=== PATIENT | female | born 1950 | race Caucasian/White ===

== ENCOUNTER → 2018-11-23 | Outpatient (CLI) | payer OTHER | LOC: M.RAD 11-09 15:29 | DX: Z12.31 Encounter for screening mammogram for malignant neoplasm of breast (principal); M81.0 Age-related osteoporosis without current pathological fracture ==

== ENCOUNTER 2019-03-08 17:54 | Emergency (ER) | payer OTHER ==
[~2019-03-08] VITALS: Ht 157.5 cm; Wt 81.7 kg
[2019-03-08] MEDS ORDERED: KAPSPARGO SPRIN25 MG PO (18:28)
[2019-03-08] MEDS ORDERED: IRBESARTAN300 MG PO (18:28)
[2019-03-08] MEDS ORDERED: HYDROCHLOROTH12.5 M1 PO (18:29)
[2019-03-08 19:25] LABS: ABSOLUTE BASOPHILS 0.1 thou/uL (0.0-0.2); ABSOLUTE EOSINOPHILS 0.4 thou/uL (0.0-0.7); ABSOLUTE MONOCYTES 0.6 thou/uL (0.0-1.2); ABSOLUTE NEUTROPHILS 4.5 thou/uL (1.6-8.1); BASOPHILS 1.3 %; EOSINOPHILS 4.1 %; HEMATOCRIT 42.4 % (37.0-47.0); HEMOGLOBIN 14.9 gm/dL (12.0-15.0); MCH 31.4 pg (26.0-34.0); MCHC 35.2 g/dL (28.0-37.0); MCV 89.2 fL (80.0-100.0); MONOCYTES 7.4 %; MPV 7.9 fl. (7.2-11.1); NUCLEATED RBCS 0 /100WBC; PLATELET COUNT* 239 thou/uL (150-400); POLYS 52.2 %; RBC 4.75 mil/uL (4.20-5.00); RDW-CV 13.1 % (10.5-14.5); WBC 8.6 thou/uL (4.0-11.0)
[2019-03-08 19:32] LABS: CALCIUM 9.5 mg/dL (8.5-10.1); CREATININE 0.9 mg/dL (0.6-1.3)
[2019-03-08 19:37] LABS: ALBUMIN 3.8 g/dL (3.4-5.0); TOTAL BILIRUBIN 0.4 mg/dL (<0.1-1.0); TOTAL PROTEIN 7.4 g/dL (6.4-8.2)
[2019-03-08 20:14] LABS: URINE BILIRUBIN NEGATIVE (Negative); URINE BLOOD NEGATIVE (Negative); URINE COLOR YELLOW; URINE GLUCOSE-RANDOM NEGATIVE (Negative); URINE KETONES NEGATIVE (Negative); URINE LEUKOCYTES-REFLEX TRACE (Negative); URINE NITRITE-REFLEX NEGATIVE (Negative); URINE PROTEIN NEGATIVE (Negative); URINE UROBILINOGEN 0.2 E.U./dl (0.2-1.0)
[2019-03-08 20:15] LABS: URINE CLARITY HAZY
[2019-03-08 20:23] LABS: MUCUS None Seen strn/LPF (None Seen); SQUAMOUS 0-3 Few /LPF (0-3)
[2019-03-08 20:24] LABS: BACTERIA-REFLEX 1-9 Few /HPF (None Seen); CRYSTALS None Seen /LPF (None Seen); URINE RBC 0-2 Rare /HPF (0-2); URINE WBC-REFLEX 0-5 Rare /HPF (0-5)
[2019-03-08 20:25] LABS: CASTS None Seen /LPF (None Seen)
[2019-03-08] MEDS ORDERED: CLONIDINE HCL0.2 M2 PO (20:48)
[2019-03-08 21:24] VITALS: BP 186/77
--- NOTE | 2019-03-09 18:20 | EKG ---
[place] [address] ELECTROCARDIOGRAM REPORT Name: EFRAIN BELLAMY [id number] Admission: 03/08/19 Attend Phys: Discharge: 03/08/19 Date of : 48 Report #: [id number] THIS REPORT FOR: //name// [facility] ED Test Date: 2019-03-08 Test Time: 19:20:09 Pat Name: EFRAIN BELLAMY Department: Room: Gender: F [employer]: : 1950 Requested By: Edie Ross Order Number: [id number] MD: Joshua Vitale Measurements Intervals [place] Rate: 75 P: 13 IN: 131 QRS: -8 QRSD: 100 T: -1 QT: 404 QTc: 452 Interpretive Statements Sinus rhythm No previous ECG available for comparison Electronically Signed On 03-09-2019 18:20:14 CDT by Joshua Vitale [email or web address] <ELECTRONICALLY SIGNED> By: Joshua Vitale MD, [facility] 03/09/19 1820 192 1920 Joshua Vitale MD, FACC /EPI
== END 2019-03-08 21:24 | disposition home or self-care (01) ==
LOC: M.ERS 17:54
PROVIDERS: Nurse Practitioner Family
DX: I10 Essential (primary) hypertension (principal); K21.9 Gastro-esophageal reflux disease without esophagitis